=== PATIENT | female | born 1980 ===

== ENCOUNTER 2017-05-27 19:33 | Emergency (ER) | payer BC, OTHER ==
[2016-09-10 16:16] VITALS: BMI 31.2
--- NOTE | 2017-05-27 20:53 | OBHP ---
Datetime: 05/27/2017 20:47 IP Adm Impression: , intrauterine IP Chief Complaint Other: sob and chest pressure Admit Comment, IP Provider: at 28=weeks came with c/o sob and chest presure from yesterday.no s ob while lying lat on the back.,no ctxs, vb, lof=fm obhx 3 x sab, 1 x c/s pmh de med pnv all nkda psh de soch de pulse ox 98 on room air vitals n no ob issues at 28weeks with sob and chest pressure send to ER FOR EVAUTATION F/U IN PMD in 1 day Pelvic Type - PN: Adequate Extremities - PN: Normal Abdomen - PN: Normal Back - PN: Normal Breast - PN: Normal Lungs - PN: Normal Heart - PN: Normal Thyroid - PN: Normal Neurologic - PN: Normal HEENT - PN: Normal General - PN: Normal FHR - Baseline A Provider: 130 Contraction Comments Provider: none Vital Signs Provider: Reviewed; Within Normal Limits NICHD Variability Prov Fetus A: Moderate 6-25bpm Genitourinary Exam: Normal DTRs - PN: Normal
--- NOTE | 2017-05-27 20:55 | OBDCSUM ---
Datetime: 05/27/2017 20:52 Discharged to, Provider: Home Follow up at, Provider: day Follow up in weeks, Provider: dr rgean Discharge Comment, Provider: send to er for evalution fu pmd Discharge Diagnosis Prov Other: 28weeks sob
[2017-05-27 21:47] VITALS: RESP 20
[2017-05-27 22:44] LABS: BASO % 0.3 % (0.0-2.0); EOS # 0.1 K/uL (0.0-0.7); HEMOGLOBIN 11.4 g/dL (11.0-16.0); LYMPH # 1.5 K/uL (1.0-4.3); LYMPH % 19.3 % (20.0-40.0); MEAN CORPUSCULAR HEMOGLOBIN 30.4 pg (27.0-31.0); MEAN CORPUSCULAR HGB CONC 34.5 g/dL (33.0-37.0); MEAN PLATELET VOLUME 7.1 fL (7.2-11.7); MONO # 0.4 K/uL (0.0-0.8); MONO % 5.8 % (0.0-10.0); NEUT # 5.6 K/uL (1.8-7.0); NEUT % 73.6 % (50.0-75.0); RBC 3.75 Mil/uL (3.80-5.20); RED CELL DISTRIBUTION WIDTH 13.2 % (11.5-14.5); WHITE BLOOD COUNT 7.6 K/uL (4.8-10.8)
[2017-05-27 22:45] LABS: MEAN CELL VOLUME 88.1 fL (81.0-99.0)
[2017-05-27 22:56] LABS: ALBUMIN 3.3 g/dL (3.5-5.0); ALT/SGPT 23 U/L (9-52); AST/SGOT 24 U/L (14-36); BLOOD UREA NITROGEN 4 mg/dL (7-17); CALCIUM 8.8 mg/dl (8.6-10.4); GFR AFRICAN-AMERICAN > 60; GFR NON-AFRICAN AMERICAN > 60
[2017-05-27 22:58] VITALS: O2SAT 99
--- NOTE | 2017-05-27 23:42 | C.PDOC ---
History Of Present Illness Patient sent to ER from [facility] house [facility] ER for evaluation, is c/o of episodes of mild SOB associated with chest pressure. Symptoms began yesterday and were mild, returned today so patient came in for evaluation. She is currently 28 weeks . Patient denies palpitations, exertional SOB or orthopnea, LE swelling , cough, fever, abdominal/pelvic pain, vaginal bleeding, dysuria. Time Seen by Provider: 05/27/17 22:00 Chief Complaint (Nursing): Shortness Of Breath History Per: Patient History/Exam Limitations: no limitations Onset/Duration Of Symptoms: Days (2) Current Symptoms Are (Timing): Better Severity: Mild Past Medical History Reviewed: Historical Data, Nursing Documentation, Vital Signs Vital Signs: Last Vital Signs Temp 98.2 F 05/27/17 21:41 Pulse 98 H 05/27/17 21:41 Resp 20 05/27/17 22:00 BP 109/77 05/27/17 21:41 Pulse Ox 99 05/27/17 23:44 - Medical History PMH: Anemia, Hypothyroidism Surgical History: Appendectomy, - [facility] Procedures D & C NEC (01/29/13) INJECT/INFUSE NEC (06/16/14) Family History: States: No Known Family Hx - Social History Hx Alcohol Use: No Hx Substance Use: No Review Of Systems Except As Marked, All Systems Reviewed And Found Negative. Constitutional: Negative for: Fever, Chills Cardiovascular: Negative for: Palpitations Respiratory: Positive for: Shortness of Breath (with chest pressure ). Negative for: Cough Gastrointestinal: Negative for: Nausea, Vomiting, Abdominal Pain, Diarrhea Genitourinary: Negative for: Vaginal Discharge, Vaginal Bleeding Skin: Negative for: Rash Neurological: Negative for: Weakness, Incoordination Physical Exam - Physical Exam Appears: Well, Non-toxic, No Acute Distress, Other (speaking in full sentences) Skin: Normal Color, Warm, Dry, No Rash Eye(s): bilateral: Normal Inspection Oral Mucosa: Moist Cardiovascular: Rhythm Regular Respiratory: Normal Breath Sounds, No Accessory Muscle Use, No Rales, No Rhonchi , No Wheezing Gastrointestinal/Abdominal: Normal Exam, Bowel Sounds, Soft, No Tenderness, Other (gravid) Extremity: Normal ROM, No Pedal Edema, No Calf Tenderness Pulses: Left Dorsalis Pedis: Normal, Right Dorsalis Pedis: Normal Neurological/Psych: Oriented x3 ED Course And Treatment - Laboratory Results Result Diagrams: 05/27/17 22:40 05/27/17 22:40 ECG: Interpreted By Me, Viewed By Me (NSR 90 bpm, normal axis, no acute ST/T wave changes, no S waves in lead I) ECG Interpretation: Normal O2 Sat by Pulse Oximetry: 99 (RA) Pulse Ox Interpretation: Normal Progress Note: Blood work, EKG, CXR ordered and reviewed. Disposition Counseled Patient/Family Regarding: Studies Performed, Diagnosis, Need For Followup, Rx Given - Disposition Referrals: [facility] at [facility] [Outside] Disposition: HOME/ ROUTINE Disposition Time: 01:10 Condition: STABLE Additional Instructions: FOLLOW UP WITH YOUR CARE PROGRAM RESIDENT WITHIN 1 WEEK RETURN TO EMERGENCY ROOM IF SYMPTOMS WORSEN SEGUIMIENTO CON TU OB / BROKER AGRICULTURAL PRODUCE DENTRO DE 1 SEMANA REGRESE AL DEANDRA DE EMERGENCIA SI LOS SNTOMAS EMPEORAN Prescriptions: Nitrofurantoin Macrocrystals [Macrobid] 1 cap PO BID #14 cap Instructions: Urinary Tract Infection, Adult (DC) Forms: [employer] ([place]an) Print Language: LITHUANIAN - POA Present On Arrival: None - Clinical Impression Clinical Impression: UTI (urinary tract infection)
[2017-05-28 01:07] LABS: SQUAMOUS EPITHIAL 40 /hpf (0-5); URINE BACTERIA FEW (<OCC); URINE BILIRUBIN NEGATIVE (NEGATIVE); URINE BLOOD 1+ (NEGATIVE); URINE CLARITY Hazy (Clear); URINE COLOR Yellow (YELLOW); URINE GLUCOSE (UA) NORMAL (Normal); URINE LEUKOCYTE ESTERASE 3+ Leu/uL (Negative); URINE PROTEIN 1+ mg/dL (NEGATIVE)
[2017-05-28 01:56] VITALS: BP 107/75; PULSE 90; TEMP 98
--- NOTE | 2017-05-28 11:24 | RAD ---
PROCEDURE: CHEST RADIOGRAPH, 1 VIEW HISTORY: SOB COMPARISON: None available. FINDINGS: LUNGS: Clear. PLEURA: No pneumothorax or pleural fluid seen. CARDIOVASCULAR: Normal. OSSEOUS STRUCTURES: No significant abnormalities. VISUALIZED UPPER ABDOMEN: Normal. OTHER FINDINGS: None. IMPRESSION: No active disease.
--- NOTE | 2017-05-28 17:05 | CARD ---
APPROVED REPORT EKG Measurement Heart [id number] <Conclusion> Normal sinus rhythm Normal ECG
== END 2017-05-28 01:30 | disposition home or self-care (01) ==
LOC: C.ER 19:33
DX: O23.43 Unspecified infection of urinary tract in pregnancy, third trimester (principal); Z3A.28 28 weeks gestation of pregnancy

== ENCOUNTER 2017-06-15 21:20 | Emergency (ER) | payer BC ==
[2017-06-15 22:08] VITALS: BMI 29.2
[2017-06-15] MEDS ORDERED: Magnesium Sulfate 4 gm/100 ml 4 GM/100 ML BAG IVPB ONE ×2 (22:08→22:14)
[2017-06-15] MEDS ORDERED: Lactated Ringer's 1,000 ML IV SCH (22:15)
[2017-06-15] MEDS ORDERED: Betamethasone Soluspan 30 mg/5mL Inj Susp IM ONE (22:15)
[2017-06-15] MEDS ORDERED: DiphenhydrAMINE 50 mg/ml Inj ONE (22:38)
--- NOTE | 2017-06-15 22:44 | OBHP ---
Datetime: 06/15/2017 22:20 IP Adm Impression: , intrauterine IP Chief Complaint Other: abdominal pain IP [place] [facility] [place] Comment, IP Provider: 37 yo with cerclage edc 08/14 preents @ 31.3wks w/ c/o lower abd pain since yesterday with decreased pain last night. She states she thought it ws her fibroids yester day. pain increased in intensity today and that is why she presented now. she denies srom, bleeding, decreased fm, pprom, or coitus. Ob hx signif for cerclage placement and h/o uterine fibroids POBhx: cd x1; sab x3 pmhx: hypothyroid disease pshx: cdx1; appy allerg:pcn swelling medic: levothyroxine; pnv i: 31.3wks cerclage ptl h/o CD c/o fibroid p: pt d/w dr lockwood- MgSO4 4g load Betamethasone 12mg x1 Clindamycin 900mg IVx1 [place] [facility] [place] [facility] [place] of care d/w pt Pelvic Type - PN: Adequate Extremities - PN: Normal Abdomen - PN: Normal Back - PN: Normal Lungs - PN: Normal Heart - PN: Normal Neurologic - PN: Normal HEENT - PN: Normal General - PN: Normal FHR - Baseline A Provider: 140 EGA AdmitDate IP: 31.3 Vital Signs Provider: Within Normal Limits IP Chief Complaint: Other NICHD Variability Prov Fetus A: Moderate 6-25bpm Genitourinary Exam: Normal
[2017-06-16 03:35] VITALS: BP 119/82; PULSE 102; RESP 18; TEMP 97
== END 2017-06-15 22:53 | disposition short-term general hospital (02) ==
LOC: C.EROB 21:20
DX: O26.93 Pregnancy related conditions, unspecified, third trimester (principal); R10.30 Lower abdominal pain, unspecified; Z3A.31 31 weeks gestation of pregnancy
CPT/HCPCS: 99283; J0702; J3475; J7120